=== PATIENT | female | born 1985 | race Caucasian/White ===

== ENCOUNTER → 2017-07-30 | Outpatient (CLI) | payer OTHER | END | disposition home or self-care (01) | LOC: RAD 12:20 | PROVIDERS: ATTEND Nurse Practitioner Family | DX: T83.32XA Displacement of intrauterine contraceptive device, initial encounter (principal); Y76.2 Prosthetic and other implants, materials and accessory obstetric and gynecological devices associated with adverse incidents | CPT/HCPCS: 76830 ==

== ENCOUNTER → 2020-01-22 | Outpatient (CLI) | payer OTHER ==
[2020-01-22 07:26] LABS: BASOPHILS % (AUTO) 1 % (0-1); EOSINOPHILS % (AUTO) 2 % (1-7); LYMPHOCYTES % (AUTO) 27 % (22-44); MEAN CORPUSCULAR HEMOGLOBIN 28.9 pg (27.0-34.8); MEAN CORPUSCULAR HGB CONC 32.6 g/dL (32.4-35.8); MEAN PLATELET VOLUME 8.5 fL (7.4-10.4); MONOCYTES % (AUTO) 11 % (2-9); NEUTROPHILS % (AUTO) 60 % (42-75); PLATELET COUNT 285 x10^3/uL (130-400); RED CELL DISTRIBUTION WIDTH 14.4 % (9.6-15.2)
[2020-01-22 07:31] LABS: MD NO
[2020-01-22 07:35] LABS: ALBUMIN 3.5 g/dL (3.4-5.0); CALCIUM 8.2 mg/dL (8.5-10.1)
[2020-01-22 07:38] LABS: ALANINE AMINOTRANSFERASE 25 U/L (12-78); ALKALINE PHOSPHATASE 36 U/L (45-117); BILIRUBIN,TOTAL 0.5 mg/dL (0.2-1.0); CHOL/HDL RATIO 1.7; CHOLESTEROL, TOTAL 179 mg/dL (140-239); CREATININE 0.85 mg/dL (0.55-1.02); HDL CHOL % 60 % (28-40); HDL CHOLESTEROL (DIRECT) 107 mg/dL (40-60); LDL CHOLESTEROL,CALCULATED 64 mg/dL (54-169); LDL/HDL RATIO 0.6 (0.5-3.0); TOTAL PROTEIN 6.7 g/dL (6.4-8.2); TRIGLYCERIDES 40 mg/dL (50-200); VLDL CHOLESTEROL 8 mg/dL (0-25)
[2020-01-22 07:44] LABS: ANION GAP 6 mmol/L (5-15); CHLORIDE 109 mmol/L (98-107)
== END | disposition home or self-care (01) ==
LOC: LAB 07:11
PROVIDERS: ATTEND Nurse Practitioner Family
DX: Z01.84 Encounter for antibody response examination (principal)
CPT/HCPCS: 36415; 80053; 80061; 85025